=== PATIENT | male | born 1970 | race Caucasian/White ===

== ENCOUNTER 2022-02-01 17:26 | Emergency (ER) | payer MEDICARE ==
[2022-02-01] MEDS ORDERED: CEPHALEXIN500 M1 PO (19:07)
[2022-02-01] MEDS ORDERED: PERCOCET 5-3251 EACH PO (19:08)
[2022-02-03] MEDS ORDERED: ADVAIR 250-501 EACH INH (06:45)
[2022-02-03] MEDS ORDERED: SPIRIVA RESPIMAT4 GM INH (06:46)
[2022-02-03] MEDS ORDERED: BUSPIRONE HCL5 MG PO (06:47)
[2022-02-03] MEDS ORDERED: VAZALORE81 MG PO (06:47)
[2022-02-03] MEDS ORDERED: REMERON 15 MG T15 MG PO (06:48)
[2022-02-03] MEDS ORDERED: ZOCOR40 MG PO (06:48)
[2022-02-03] MEDS ORDERED: VISTARIL25 MG PO (06:48)
[2022-02-03] MEDS ORDERED: ZESTRIL20 MG PO (06:48)
[2022-02-03] MEDS ORDERED: ZYLOPRIM 300 M300 MG PO (06:49)
[2022-02-03] MEDS ORDERED: GLUCOTROL5 MG PO (06:49)
[2022-02-03] MEDS ORDERED: OXYCODONE HCL5 M1 PO (08:54)
[2022-02-03] MEDS ORDERED: KEFLEX CAP 250250 MG PO (08:55)
[2022-02-03] MEDS ORDERED: CEPHALEXIN500 MG PO (08:56)
== END 2022-02-01 19:50 | disposition home or self-care (01) ==
LOC: ER1 17:26
DX: S68.120A Partial traumatic metacarpophalangeal amputation of right index finger, initial encounter (principal); E11.9 Type 2 diabetes mellitus without complications; Z23 Encounter for immunization; Z79.84 Long term (current) use of oral hypoglycemic drugs; W23.0XXA Caught, crushed, jammed, or pinched between moving objects, initial encounter
CPT/HCPCS: 64450; 73140; 90471; 90715; 96374; 96375; 99283; J0690; J0696; J2270; J2405

== ENCOUNTER → 2022-02-03 | Day surgery (SDC) | payer MEDICARE ==
[~2022-02-03] MED LIST: ADVAIR 250-501 EACH INH; BUSPIRONE HCL5 MG PO; CEPHALEXIN500 M1 PO; CEPHALEXIN500 MG PO; GLUCOTROL5 MG PO; KEFLEX CAP 250250 MG PO; OXYCODONE HCL5 M1 PO; PERCOCET 5-3251 EACH PO; REMERON 15 MG T15 MG PO; SPIRIVA RESPIMAT4 GM INH; VAZALORE81 MG PO; VISTARIL25 MG PO; ZESTRIL20 MG PO; ZOCOR40 MG PO; ZYLOPRIM 300 M300 MG PO
[2022-02-03 06:27] LABS: RED BLOOD COUNT 5.27 M/UL (4.20-5.50); WHITE BLOOD COUNT 5.7 K/UL (4.5-11.0)
[2022-02-03 06:48] LABS: BUN/CREATININE RATIO 21 (0-10)
== END | disposition home or self-care (01) ==
LOC: OR 05:21
PROVIDERS: Orthopaedic Surgery
DX: S67.190A Crushing injury of right index finger, initial encounter (principal); S67.192A Crushing injury of right middle finger, initial encounter; I10 Essential (primary) hypertension; E11.9 Type 2 diabetes mellitus without complications; X50.9XXA Other and unspecified overexertion or strenuous movements or postures, initial encounter; Z79.82 Long term (current) use of aspirin
CPT/HCPCS: 36415; 80048; 82962; 85027; 93005; J0690; J1100; J1885; J2001; J2250; J2405; J2704; J3010; J7030

== ENCOUNTER → 2022-02-22 | Day surgery (SDC) | payer MEDICARE ==
[~2022-02-22] VITALS: Ht 172.7 cm; Wt 110.2 kg
[~2022-02-22] MED LIST changes: +BUSPIRONE HCL15 MG PO; +CINNAMON500 MG PO; +COMBIVENT RESPIM4 GM INH; +MEN'S 50 PLUS1 EACH PO; +METFORMIN HCL1000 M1 PO; +OMEGA 3-6-9 CO400 MG PO; +PRAZOSIN HCL1 MG PO; +ROXICODONE5 MG PO; +[UNRECOGNIZED DRUG - OTHER] PO
[2022-02-22 07:18] LABS: HEMOGLOBIN 15.5 gm/dl (14.0-17.5); RED BLOOD COUNT 5.23 M/UL (4.20-5.50); WHITE BLOOD COUNT 5.2 K/UL (4.5-11.0)
[2022-02-22 07:39] LABS: BUN/CREATININE RATIO 23 (0-10)
== END | disposition home or self-care (01) ==
LOC: OR 06:25
PROVIDERS: Orthopaedic Surgery
DX: T87.41 Infection of amputation stump, right upper extremity (principal); B99.9 Unspecified infectious disease; Y83.5 Amputation of limb(s) as the cause of abnormal reaction of the patient, or of later complication, without mention of misadventure at the time of the procedure; I10 Essential (primary) hypertension; E78.5 Hyperlipidemia, unspecified; E11.9 Type 2 diabetes mellitus without complications; M10.9 Gout, unspecified; J44.9 Chronic obstructive pulmonary disease, unspecified; Z79.82 Long term (current) use of aspirin
CPT/HCPCS: 36415; 80048; 82962; 85027; 93005; J0690; J1100; J1170; J2001; J2405; J2704